=== PATIENT | female | born 1990 | race Caucasian/White ===

== ENCOUNTER 2016-10-22 19:08 | Emergency (ER) | payer SELFPAY ==
[~2016-10-22] VITALS: Ht 157.5 cm; Wt 81.6 kg
[2016-10-22 20:16] VITALS: BP 146/105
--- NOTE | 2016-10-22 21:46 | NUR ---
PATIENT LEFT WITHOUT BEING SEEN BY DR. FIELDS. NO FURTHER CARE PROVIDED FOR PATIENT.
== END 2016-10-22 21:46 | disposition left against medical advice (07) ==
LOC: MED 19:08
DX: R10.9 Unspecified abdominal pain (principal); Z53.21 Procedure and treatment not carried out due to patient leaving prior to being seen by health care provider